=== PATIENT | male | born 1985 | race Caucasian/White ===

== ENCOUNTER 2023-08-30 19:07 | Emergency (ER) | payer BC, MEDICAID ==
[~2023-08-30] VITALS: Ht 175.3 cm; Wt 102.1 kg
[2023-08-30 19:18] VITALS: BP 141/90; PULSE 93; RESP 18; TEMP 98.5; O2SAT 98
[2023-08-30] MEDS ORDERED: ONDANSETRON 4 MG ODT PO ONE (19:30)
[2023-08-30] MEDS ORDERED: ACETAMINOPHEN 325 MG TAB PO ONE (19:30)
[2023-08-30] MEDS ORDERED: MECLIZINE 25 MG TAB PO ONE (19:30)
[2023-08-30] MEDS ORDERED: ONDA-188 SL (19:46)
[2023-08-30] MEDS ORDERED: IBUP-2213 PO (19:46)
[2023-08-30 20:19] VITALS: O2SAT 98
== END 2023-08-30 20:34 | disposition home or self-care (01) ==
LOC: MED 19:07
DX: S09.90XA Unspecified injury of head, initial encounter (principal); Y35.819A Legal intervention involving manhandling, unspecified person injured, initial encounter; Y93.89 Activity, other specified; Y92.89 Other specified places as the place of occurrence of the external cause; Y99.8 Other external cause status
CPT/HCPCS: 70450; 99284; J8597; Q0162

== ENCOUNTER 2023-09-08 05:55 | Emergency (ER) | payer BC, MEDICAID ==
[~2023-09-08] VITALS: Ht 175.3 cm; Wt 102.1 kg
[~2023-09-08 05:55] MED LIST: IBUP-2213 PO; ONDA-188 SL
[2023-09-08 06:12] VITALS: BP 121/84; PULSE 112; RESP 18; TEMP 97.8; O2SAT 97
[2023-09-08 06:25] VITALS: BP 121/84; PULSE 112; RESP 18; TEMP 97.8; O2SAT 97
[2023-09-08] MEDS ORDERED: IBUP-2213 PO (06:45)
[2023-09-08] MEDS ORDERED: GABA100C PO (06:45)
== END 2023-09-08 06:50 | disposition home or self-care (01) ==
LOC: MED 05:55
DX: R20.2 Paresthesia of skin (principal); M79.644 Pain in right finger(s); M79.645 Pain in left finger(s); Z79.899 Other long term (current) drug therapy; Z79.1 Long term (current) use of non-steroidal anti-inflammatories (NSAID)
CPT/HCPCS: 99283